=== PATIENT | male | born 1975 | race Two or more races ===

== ENCOUNTER 2019-11-06 01:12 | Emergency (ER) | payer SELFPAY ==
[~2019-11-06] VITALS: Ht 162.6 cm; Wt 63.5 kg
[2019-11-06 01:11] VITALS: BP 130/80
--- NOTE | 2019-11-06 01:12 | NUR ---
ED Nurse Note: Patient brought into ED by [id number] from the [facility] c/o bilateral leg pain onset for 3 years now, rates his pain a 5/10 pain. patient is alert and oriented x4 and is able to ambulate however complains of pain, admits to drinking an unknown amount of alcohol prior to arrival. patient placed in a gurney and bed at lowest position. will continue to monitor
[2019-11-06] MEDS ORDERED: IBUPROFEN600 M1 ORAL (01:26)
--- NOTE | 2019-11-06 01:26 | Emergency Room Report ---
History of Present Illness General Chief Complaint: Pain Source: Patient Present Illness HPI Is a 44-year-old male who presents with chief complaint of bilateral leg pain. Is been ongoing for 3 years. He has been drinking tonight. He said he fell and hurt his left leg. Pain is bilaterally. No change from before. No nausea no vomiting. No fever chills but no head injury. Denies any other complaint. Said pain is 8 out of 10. Worse with walking. Better with rest. Allergies: Coded Allergies: No Known Allergies (Unverified , 11/06/19) COVID-19 Screening Contact w/high risk pt: No Experienced COVID-19 symptoms?: No COVID-19 Testing performed [place] THRESHER: No Patient History Past Medical History: see triage record, old chart reviewed Past Surgical History: other Pertinent Family History: none Social History: Reports: alcohol use Immunizations: other Reviewed Nursing Documentation: PMH: Agreed; PSxH: Agreed Nursing Documentation-PMH Hx Diabetes: Yes Review of Systems Eye: Denies: eye pain, blurred vision ENT: Denies: ear pain, nose congestion, throat swelling Respiratory: Denies: cough, shortness of breath Cardiovascular: Denies: chest pain, palpitations Gastrointestinal: Denies: abdominal pain, diarrhea, nausea, vomiting Musculoskeletal: Reports: muscle stiffness; Denies: back pain, joint pain Skin: Denies: rash Neurological: Denies: headache, numbness Endocrine: Denies: increased thirst, increased urine Hematologic/Lymphatic: Denies: easy bruising All Other Systems: negative except mentioned in HPI Physical Exam Vital Signs Date Time Temp Pulse Resp B/P (MAP) Pulse Ox O2 Delivery O2 Flow Rate FiO2 11/06/19 01:06 99.1 110 11/06/19 01:06 18 130/80 (97) 100 Room Air Vitals unremarkable Sp02 EP Interpretation: reviewed, normal General Appearance: well appearing, no apparent distress, alert Head: normocephalic, atraumatic Eyes: bilateral eye PERRL, bilateral eye EOMI ENT: hearing grossly normal, normal pharynx Neck: full range of motion, supple, no meningismus Respiratory: chest non-tender, lungs clear, normal breath sounds Cardiovascular #1: regular rate, rhythm, no murmur Gastrointestinal: normal bowel sounds, non tender, no mass, no organomegaly, no bruit, non-distended Musculoskeletal: back normal, normal range of motion, other - Left leg: He has an old quadricep tendon tear. Patient said this occurred many years ago in [place]. Full range of motion. No deformity. Psychiatric: mood/affect normal Medical Decision Making Diagnostic Impression: Primary Impression: Leg pain, bilateral Additional Impression: Alcohol intoxication Qualified Codes: F10.920 - Alcohol use, unspecified with intoxication, uncomplicated ER Course Bilateral leg pain. I see no trauma. He is intoxicated. Will discharge home. Last Vital Signs Date Time Temp Pulse Resp B/P (MAP) Pulse Ox O2 Delivery O2 Flow Rate FiO2 11/06/19 01:11 98.5 98 18 130/80 100 Room Air Status: improved Disposition: HOME, SELF-CARE Condition: Stable Scripts Ibuprofen* (MOTRIN*) 600 Mg Tablet 600 MG ORAL Q6H PRN for For Pain, #30 TAB 0 Refills Prov: Yordan Mascorro MD 11/06/19 Additional Instructions: Stop drinking alcohol. Follow-up with your doctor in 7 days. Return if symptoms worsen. Yordan Mascorro MD Nov 06, 2019 01:26
--- NOTE | 2019-11-06 02:00 | NUR ---
ED Nurse Note: Patient able to ambulate to restroom, will continue to monitor.
--- NOTE | 2019-11-06 02:52 | NUR ---
ED Nurse Note: Patient is sleeping soundly, with no signs or symptoms of acute distress. Will continue to monitor for discharge.
--- NOTE | 2019-11-06 03:23 | NUR ---
ED Nurse Note: Patient ambulated to restroom. Will continue to monitor.
--- NOTE | 2019-11-06 04:21 | NUR ---
ED Nurse Note: Patient still sleeping, no s/s of acute distress. Will continue to monitor for discharge.
[2019-11-06 05:45] VITALS: BP 126/84
--- NOTE | 2019-11-06 05:45 | NUR ---
ER DISCHARGE NOTE: Patient is cleared to be discharged per ERMD. Pt is aox4, on room air, with stable vital signs. Pt was given dc and prescription instructions. Instructed pt to follow up with PCP within one week. Pt was able to verbalize understanding. Pt ID band removed. Pt is able to ambulate with steady gait. Pt took all belongings. [place] and water provided.
== END 2019-11-06 05:45 | disposition home or self-care (01) ==
LOC: EDBD 01:12 → EMR 02:46
DX: M79.605 Pain in left leg (principal); M79.604 Pain in right leg; F10.129 Alcohol abuse with intoxication, unspecified; E11.9 Type 2 diabetes mellitus without complications
CPT/HCPCS: 99283